=== PATIENT | male | born 1965 | race Caucasian/White ===

== ENCOUNTER 2017-08-03 05:51 | Emergency (ER) | payer BC ==
[2017-08-03] MEDS ORDERED: Sodium Chloride 0.9% 1,000 ML IV ONE (06:16)
--- NOTE | 2017-08-03 06:16 | EDM.PDOC ---
<Rene Horvath J - Last Filed: 08/03/17 06:14> ED HPI GENERAL MEDICAL PROBLEM - General Chief Complaint: Abdominal Pain Stated Complaint: LOWER ABDOMINAL PAIN Time Seen by Provider: 08/03/17 06:04 - History of Present Illness INITIAL COMMENTS - FREE TEXT/NARRATIVE: HISTORY AND PHYSICAL: History of present illness: Patient's 52-year-old white male sensory concern abdominal pain 2 days this is in his lower abdomen he states today radiated to his right lower quadrant he's had some constipation he denies vomiting diarrhea fever chills denies trauma he has had history of urolithiasis but states felt completely different. This pain is improved since arrival. Review of systems: As per history of present illness and below otherwise all systems reviewed and negative. Past medical history: As per history of present illness and as reviewed below otherwise noncontributory. Surgical history: As per history of present illness and as reviewed below otherwise noncontributory. Social history: No reported history of drug or alcohol abuse. Family history: As per history of present illness and as reviewed below otherwise noncontributory. Physical exam: HEENT: Atraumatic, normocephalic, pupils reactive, negative for conjunctival pallor or scleral icterus, mucous membranes moist, throat clear, neck supple, nontender, trachea midline. Lungs: Clear to auscultation, breath sounds equal bilaterally, chest nontender. Heart: S1S2, regular, negative for clicks, rubs, or JVD. Abdomen: Soft, nondistended, no localized tenderness no rebound no guarding or some mild discomfort to deep palpation in right lower quadrant. Negative for masses or hepatosplenomegaly. Negative for costovertebral tenderness. Pelvis: Stable nontender. Genitourinary: Deferred. Rectal: Deferred. Extremities: Atraumatic, negative for cords or calf pain. Neurovascular unremarkable. Neuro: Awake, alert, oriented. Cranial nerves II through XII unremarkable. Cerebellum unremarkable. Motor and sensory unremarkable throughout. Exam nonfocal. Diagnostics: CBC CMP UA CT abdomen and pelvis Therapeutics: Saline 1 L bolus Impression: #1 abdominal pain Definitive disposition and diagnosis as appropriate pending reevaluation and review of above. lower abdomen Pain Score (Numeric/FACES): 1 - Related Data Allergies Allergy/AdvReac Type Severity Reaction Status Date / Time No Known Allergies Allergy Verified 08/03/17 06:01 Home Meds: Home Meds Hydrochlorothiazide 25 mg PO DAILY 08/03/17 [History] Lisinopril 30 mg PO DAILY 08/03/17 [History] Omeprazole 20 mg PO DAILY 08/03/17 [History] Past Medical History HEENT History: Reports: Impaired Vision Other HEENT History: wears glasses Cardiovascular History: Reports: Hypertension Gastrointestinal History: Reports: GERD Endocrine/Metabolic History: Reports: Obesity/BMI 30+ Social & Family History - Family History Family Medical History: Noncontributory - Tobacco Use Smoking Status *Q: Never Smoker - Recreational Drug Use Recreational Drug Use: No ED ROS GENERAL - Review of Systems Review Of Systems: ROS reveals no pertinent complaints other than HPI. ED EXAM, GENERAL - Physical Exam Exam: See Below (See dictation) Course - Vital Signs Last Recorded V/S: Last Vital Signs Temp 97 F 08/03/17 05:51 Pulse 90 08/03/17 05:51 Resp 20 08/03/17 05:51 BP 150/95 H 08/03/17 05:51 Pulse Ox 96 08/03/17 05:51 - Orders/Labs/Meds Orders: Active Orders 24 hr Category Date Time Status Abdomen Pelvis wo Cont [CT] Stat Exams 08/03/17 06:07 Taken Labs: Laboratory Tests 08/03/17 08/03/17 08/03/17 Range/Units 06:10 06:32 06:32 WBC 8.71 (4.0-11.0) K/uL RBC 4.51 (4.50-5.90) M/uL Hgb 14.0 (13.0-17.0) g/dL Hct 41.4 (38.0-50.0) % MCV 91.8 (80.0-98.0) fL MCH 31.0 (27.0-32.0) pg MCHC 33.8 (31.0-37.0) g/dL RDW Std Deviation 43.8 (28.0-62.0) fl RDW Coeff of Amalia 13 (11.0-15.0) % Plt Count 176 (150-400) K/uL MPV 10.90 (7.40-12.00) fL Neut % (Auto) 70.7 (48.0-80.0) % Lymph % (Auto) 17.3 (16.0-40.0) % Mingo % (Auto) 9.5 (0.0-15.0) % Eos % (Auto) 2.3 (0.0-7.0) % Baso % (Auto) 0.2 (0.0-1.5) % Neut # (Auto) 6.2 H (1.4-5.7) K/uL Lymph # (Auto) 1.5 (0.6-2.4) K/uL Mingo # (Auto) 0.8 (0.0-0.8) K/uL Eos # (Auto) 0.2 (0.0-0.7) K/uL Baso # (Auto) 0.0 (0.0-0.1) K/uL Nucleated RBC % 0.0 /100WBC Nucleated RBCs # 0 K/uL Sodium 138 (136-146) mmol/L Potassium 4.1 (3.5-5.1) mmol/L Chloride 103 (98-110) mmol/L Carbon Dioxide 26 (21-31) mmol/L BUN 13 (6.0-23.0) mg/dL Creatinine 1.0 (0.6-1.5) mg/dL Est Cr Clr Drug Dosing 99.88 mL/min Estimated GFR (MDRD) > 60.0 ml/min Glucose 111 H (60-110) mg/dL Calcium 9.5 (8.8-10.8) mg/dL Total Bilirubin 0.5 (0.1-1.5) mg/dL AST 16 (5-40) IU/L ALT 26 (8-54) IU/L Alkaline Phosphatase 79 (40-150) Total Protein 7.3 (6.0-8.0) g/dL Albumin 4.2 (3.5-5.0) g/dL Globulin 3.1 (2.0-3.5) g/dL Albumin/Globulin Ratio 1.4 (1.3-2.8) Urine Color YELLOW Urine Appearance CLEAR Urine pH 5.5 (5.0-8.0) Ur Specific Clayton 1.015 (1.001-1.035) Urine Protein NEGATIVE (NEGATIVE) mg/dL Urine Glucose (UA) NEGATIVE (NEGATIVE) mg/dL Urine Ketones NEGATIVE (NEGATIVE) mg/dL Urine Occult Blood NEGATIVE (NEGATIVE) Urine Nitrite NEGATIVE (NEGATIVE) Urine Bilirubin NEGATIVE (NEGATIVE) Urine Urobilinogen 0.2 (<2.0) EU/dL Ur Leukocyte Esterase NEGATIVE (NEGATIVE) Urine RBC 0-2 (0-2/HPF) Urine WBC 0-1 (0-5/HPF) Ur Epithelial Cells RARE (NONE-FEW) Urine Bacteria RARE (NEGATIVE) Urine Mucus LIGHT (NONE-MOD) Meds: Medications Discontinued Medications Generic Name Dose Route Start Last Admin Trade Name Freq PRN Reason Stop Dose Admin Sodium Chloride 1,000 mls @ 999 mls/hr 08/03/17 06:16 08/03/17 06:25 Normal Saline IV 08/03/17 07:16 999 mls/hr STAT ONE Administration Departure - Departure Disposition: Home, Self-Care 01 Clinical Impression: Diverticulitis - Discharge Information Referrals: Gwendolyn Yoon NP [Primary Care Provider] - Forms: ED Department Discharge Additional Instructions: Medication as prescribed Return if symptoms persist or worsen Follow-up with primary care in 2 weeks for recheck The following information is given to patients seen in the emergency department who are being discharged to home. This information is to outline your options for follow-up care. We provide all patients seen in our emergency department with a follow-up referral. The need for follow-up, as well as the timing and circumstances, are variable depending upon the specifics of your emergency department visit. If you don't have a primary care physician on staff, we will provide you with a referral. We always advise you to contact your personal physician following an emergency department visit to inform them of the circumstance of the visit and for follow-up with them and/or the need for any referrals to a consulting specialist. The emergency department will also refer you to a specialist when appropriate. This referral assures that you have the opportunity for follow-up care with a specialist. All of these measure are taken in an effort to provide you with optimal care, which includes your follow-up. Under all circumstances we always encourage you to contact your private physician who remains a resource for coordinating your care. When calling for follow-up care, please make the office aware that this follow-up is from your recent emergency room visit. If for any reason you are refused follow-up, please contact the [facility] emergency department at and asked to speak to the emergency department charge nurse. <Jama Fernández - Last Filed: 08/03/17 07:35> ED HPI GENERAL MEDICAL PROBLEM - History of Present Illness INITIAL COMMENTS - FREE TEXT/NARRATIVE: Seen and examined the patient agree with above Patient signed out to me to follow lab and imaging Patient remains afebrile no nausea vomiting chills sweats Gen. no acute distress HEENT grossly within normal limits Chest clear throughout CV regular rate and rhythm Abdomen soft nondistended nonfocal tenderness may be slight focus left lower quadrant on my exam bowel sounds present in all 4 quadrants Extremities full range of motion no edema STUD [employer] alert nonfocal Lab and imaging as below Therapeutics saline bolus previously provided, Cipro 500 by mouth twice a day # 20 no refill, Flagyl 500 by mouth 3 times a day #30 no refill Assessment Diverticulitis Chronic history of baseline Return if symptoms persist or worsen Follow-up with primary care in 2 weeks Definitive disposition and diagnosis as appropriate pending reevaluation and review of above Departure - Departure Time of Disposition: 07:34 Condition: Good
[2017-08-03 07:01] LABS: CHLORIDE,CL 103 mmol/L (98-110); SODIUM,NA 138 mmol/L (136-146)
--- NOTE | 2017-08-03 15:04 | CT ---
EXAM DATE: 08/03/17 PATIENT'S AGE: 52 Patient: MAKENNA ELLIS Facility: [place], [place] Site . Site : [id number] Study: CT Abdomen/Pelvis [id number]/26/2018 7:03:01 AM Ordering Physician: Alexandru López Final Report: INDICATION: Lower abdominal pain. TECHNIQUE: A CT volumetric acquisition was performed of the abdomen and pelvis without IV contrast. FINDINGS: The CT images demonstrate a normal appearance of the lung bases. There is no evidence of pleural or pericardial fluid. Within the abdomen there is generalized hepatic steatosis. The spleen and pancreas appear normal. The gallbladder and bile ducts are normal size. The adrenal glands have normal morphology. There is a 7 mm nonobstructing calculus within the mid right kidney. Left kidney appears normal. There is normal appearance of the abdominal aorta. There is no evidence retroperitoneal lymphadenopathy. The small intestine appears normal. The appendix lies in a retrocecal location and appears normal. There is localized inflammation about the posterior margin of the proximal sigmoid colon. There are diverticula within this region and the findings are consistent with acute diverticulitis. There is no evidence of abscess formation or free intraperitoneal air. There is no evidence of colonic obstruction proximal to this level. The prostate gland and urinary bladder appear normal. IMPRESSION: Acute diverticulitis involving the proximal sigmoid colon. Please note that all CT scans at this facility use dose modulation, iterative reconstruction, and/or weight-based dosing when appropriate to reduce radiation dose to as low as reasonably achievable. Dictated by Rene Byrd MD @ Aug 03 2017 7:07AM (Electronic Signature) Report Signed by Proxy. PATRICE
== END 2017-08-03 07:48 | disposition home or self-care (01) ==
LOC: MW.ED 05:51
DX: K57.32 Diverticulitis of large intestine without perforation or abscess without bleeding (principal); I10 Essential (primary) hypertension; K21.9 Gastro-esophageal reflux disease without esophagitis; Z79.899 Other long term (current) drug therapy
CPT/HCPCS: 36415; 74176; 80053; 81001; 85025; 96360; 99284; J7040; 99283